=== PATIENT | female | born 1985 | race Asian ===

== ENCOUNTER 2016-09-16 03:54 | Emergency (ER) | payer BC ==
[~2016-09-16] VITALS: Ht 172.7 cm; Wt 56.0 kg
[2016-09-16 04:36] VITALS: BP 114/74
== END 2016-09-16 06:38 | disposition home or self-care (01) ==
LOC: ER 05:06
DX: K59.00 Constipation, unspecified (principal); K62.89 Other specified diseases of anus and rectum
CPT/HCPCS: 99283; Z7610